=== PATIENT | male | born 1975 | race Two or more races ===

== ENCOUNTER 2020-12-14 01:14 | Emergency (ER) | payer SELFPAY ==
[~2020-12-14] VITALS: Ht 177.8 cm; Wt 72.6 kg
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
--- NOTE | 2020-12-14 01:27 | NUR ---
[employer] AT BED SIDE
--- NOTE | 2020-12-14 01:29 | NUR ---
MD AT BEDSIDE FOR EVALUATION
[2020-12-14] MEDS ORDERED: IBUPROFEN 600 MG TABLET ONE (01:46)
[2020-12-14 01:52] VITALS: BP 158/78
--- NOTE | 2020-12-14 01:52 | NUR ---
Patient discharged to home in stable condition. Written and verbal after care instructions given. Patient verbalizes understanding of instruction.Pt ambulatory with a steady gait
[2020-12-14] MEDS ORDERED: IBUPROFEN 600 MG TABLET PO ONE (02:00)
== END 2020-12-14 01:53 | disposition home or self-care (01) ==
LOC: ER 01:16
DX: S00.83XA Contusion of other part of head, initial encounter (principal); F15.129 Other stimulant abuse with intoxication, unspecified; Y04.0XXA Assault by unarmed brawl or fight, initial encounter; Y93.89 Activity, other specified; Y92.89 Other specified places as the place of occurrence of the external cause; Y99.8 Other external cause status